=== PATIENT | female | born 1985 | race Two or more races ===

== ENCOUNTER 2017-01-03 19:25 | Emergency (ER) | payer OTHER ==
[2017-01-03 19:32] VITALS: BP 143/83; PULSE 79; TEMP 98; BMI 31.9
[2017-01-03] MEDS ORDERED: predniSONE 20 MG TABLET (UD) PO ONE (20:08)
[2017-01-03] MEDS ORDERED: predniSONE 20 MG TABLET (UD) ONE (20:08)
[2017-01-03] MEDS ORDERED: HYDROCORTISONE 1% TOPICAL CREAM 30 GM TUBE TP ONE (20:08)
--- NOTE | 2017-01-03 21:17 | PDOC ---
History of Present Illness - General Chief Complaint: Rash Stated Complaint: Allergic Reaction Time Seen by Provider: 01/03/17 19:57 History Source: Patient Exam Limitations: No Limitations - History of Present Illness Initial Comments: 01/03/17 21:08 CHIEF COMPLAINT: Rash HISTORY OF PRESENT ILLNESS: This is a 31 year old female with a history of anaphylaxis to bee stings who presents to the ED complaining of rash/itching from bug bites to both lower extremities for about one week after traveling to [place]. This afternoon, she felt a sensation of throat tightness, face "swelling ", and shortness of breath, and used her EpiPen. She reports that shortness of breath has resolved. Vital signs on arrival are unremarkable. REVIEW OF SYSTEMS: GENERAL/CONSTITUTIONAL: No fever or chills. No weakness. No weight change. HEAD, EYES, EARS, NOSE AND THROAT: Sensation of throat tightness. CARDIOVASCULAR: No chest pain or palpitations. RESPIRATORY: Shortness of breath. GASTROINTESTINAL: No nausea, vomiting, diarrhea or constipation. GENITOURINARY: No dysuria, frequency, or change in urination. MUSCULOSKELETAL: No joint or muscle swelling or pain. No neck or back pain. SKIN: See HPI. NEUROLOGIC: No headache, vertigo, loss of consciousness, or loss of sensation. PSYCHIATRIC: No depression or anxiety. ENDOCRINE: No increased thirst. No abnormal weight change. HEMATOLOGIC/LYMPHATIC: No anemia, easy bleeding, or history of blood clots. ALLERGIC/IMMUNOLOGIC: History of anaphylaxis to insect bites/bee stings. PHYSICAL EXAM: GENERAL: The patient is awake, alert, and fully oriented, in no acute distress. ENT: Pupils equal, round and reactive to light, extraocular movements intact, sclera anicteric, conjunctiva clear. Neck supple. No oropharyngeal edema. LUNGS: Clear to auscultation bilaterally. Normal excursion. No respiratory distress or use of accessory muscles. CV: RRR, S1/S2, no MRG. Cap refill < 2 sec. ABDOMEN: Soft, non-distended, non-tender. EXTREMITIES: Normal range of motion, no edema. NEUROLOGICAL: Normal speech, normal gait. CN II-XII grossly intact. PSYCH: Normal mood, normal affect. SKIN: Diffuse, blanching, raised, erythematous rash to both lower extremities consistent with insect bites. Past History - Past Medical History Allergies/Adverse Reactions: Allergies Allergy/AdvReac Type Severity Reaction Status Date / Time No Known Allergies Allergy Verified 01/03/17 19:32 Home Medications: Ambulatory Orders Diphenhydramine HCl [Benadryl -] 25 mg PO Q8H #21 capsule 01/03/17 Prednisone [Deltasone] 20 mg PO DAILY #4 tablet 01/03/17 Other medical history: denies - Psycho/Social/Smoking Cessation Hx Suicidal Ideation: No Smoking History: Never smoked *Physical Exam - Vital Signs Last Vital Signs Temp Pulse Resp BP Pulse Ox 98 F 79 18 143/83 99 01/03/17 19:28 01/03/17 19:28 01/03/17 19:28 01/03/17 19:28 01/03/17 19:28 ED Treatment Course - Medications Given in the ED: ED Medications Discontinued Medications Generic Name Dose Route Start Last Admin Trade Name Rafaq PRN Reason Stop Dose Admin Prednisone 60 mg 01/03/17 20:08 01/03/17 20:11 Deltasone - PO 01/03/17 20:09 60 mg ONCE ONE Administration Medical Decision Making - Medical Decision Making 01/03/17 21:17 A/P: 31 year old female with insect bites, used Epipen for shortness of breath and sensation of facial/throat swelling prior to arrival. Also using Benadryl cream. 1. Prednisone 60mg po 2. Observe *DC/Admit/Observation/Transfer Diagnosis at time of Disposition: Allergic reaction Qualifiers: Encounter type: initial encounter Qualified Code(s): T78.40XA - Allergy, unspecified, initial encounter - Discharge Dispostion Disposition: HOME Condition at time of disposition: Improved Admit: No - Referrals Referrals: Enid Ortega MD [Primary Care Provider] - Cleo Mcintyre MD [Staff Physician] - Call tomorrow (Taxonomy Teacher) - Patient Instructions Printed Discharge Instructions: DI for General Allergic Reactions Additional Instructions: -Continue prednisone as prescribed -Take oral Benadryl as prescribed -Follow up with flexboard operator (referral enclosed) -Return immediately for shortness of breath, wheezing, sensation of throat tightness, or any other concerning symptoms - Post Discharge Activity Work/School Note: Back to Work
== END 2017-01-03 22:11 | disposition home or self-care (01) ==
LOC: JERFT 19:25
DX: T63.441A Toxic effect of venom of bees, accidental (unintentional), initial encounter (principal); S80.862A Insect bite (nonvenomous), left lower leg, initial encounter; S80.861A Insect bite (nonvenomous), right lower leg, initial encounter; W57.XXXA Bitten or stung by nonvenomous insect and other nonvenomous arthropods, initial encounter; Y93.89 Activity, other specified; Y92.89 Other specified places as the place of occurrence of the external cause
CPT/HCPCS: 99281-25